=== PATIENT | male | born 1990 | race Caucasian/White ===

== ENCOUNTER 2016-08-23 18:44 | Observation (INO) | payer OTHER ==
[~2016-08-23] VITALS: Ht 172.7 cm; Wt 63.7 kg
[2016-08-23] VITALS (218 sets, daily range): BP systolic 105–126; BP diastolic 67–874; PULSE 65–79; TEMP 98.2; O2SAT 97–100
[~2016-08-23 18:44] MED LIST: COLACE 100100 MG/CAP PO; EC NAPROSYN500 MG PO; FLOMAX 0.40.4 MG/CAP PO; LEVAQUIN 5500 MG/TA1 PO; MOTRIN 800800 MG/TAB PO; NAPROSYN500 MG PO; NORCO 325 MG-51 TAB PO; PERCOCET 325 MG1 TA2 PO; PYRIDIUM 100MG100 MG PO; PYRIDIUM200 M1 PO; TYLENOL 325MG325 MG PO; ZOFRAN8 MG PO
[2016-08-23] MEDS ORDERED: ZOLOFT 50MG50 MG PO (19:54)
[2016-08-23] MEDS ORDERED: MINIPRESS2 MG PO (19:55)
[2016-08-23] MEDS ORDERED: MELAT3MGTAB PO (19:56)
[2016-08-23] MEDS ORDERED: UROCIT-K 5540 MG/TAB PO (19:57)
[2016-08-23 21:41] LABS: TROPONIN-I < 0.012 ng/mL (0.000-0.034)
[2016-08-23 21:53] LABS: THYROXINE (T4)-TOTAL 6.4 ug/dL (5.5-11.0)
[2016-08-24] VITALS (531 sets, daily range): BP systolic 106–116; BP diastolic 62–78; PULSE 70–78; TEMP 96.8–98.1; O2SAT 94–100
[2016-08-24 05:48] LABS: HEMATOCRIT 44.8 % (42.0-52.0); HEMOGLOBIN 15.3 g/dl (13.5-18.0); MEAN CELL VOLUME 83 fl (80.0-100.0); MEAN CORPUSCULAR HEMOGLOBIN 28 pg (27.0-31.0); MEAN CORPUSCULAR HGB CONC 34 g/dl (33.0-37.0); MEAN PLATELET VOLUME 11.2 fl (7.4-10.4); PLATELET COUNT 245 K/mm3 (130-400); RED BLOOD COUNT 5.43 M/mm3 (4.20-5.60); REDCELL DISTRIBUTION WIDTH-CV 13.9 % (11.5-14.5); WHITE BLOOD COUNT 8.4 K/mm3 (4.8-10.8)
[2016-08-24 05:55] LABS: CALCIUM 9.2 mg/dL (8.4-10.2); CREATININE, serum 1.04 mg/dL (0.66-1.25); MAGNESIUM 2.1 mg/dL (1.6-2.3); PHOSPHOROUS 4.4 mg/dL (2.5-4.5); POTASSIUM 4.1 mmol/L (3.4-5.0)
[2016-08-24 20:37] LABS: T3 FREE (TRI-IODOTHYRONINE) 3.1 pg/mL (1.7-3.7)
== END 2016-08-24 16:04 | disposition home or self-care (01) ==
LOC: ICU 18:44
PROVIDERS: Internal Medicine; Psychiatry & Neurology Neurology
DX: R25.1 Tremor, unspecified (principal); F41.9 Anxiety disorder, unspecified; F43.10 Post-traumatic stress disorder, unspecified; R07.9 Chest pain, unspecified
CPT/HCPCS: 90791-AI; A9585; G0378; G0379; J1650; J2060

== ENCOUNTER 2017-08-29 15:39 | Day surgery (SDC) | payer OTHER ==
[~2017-08-29] VITALS: Ht 170.2 cm; Wt 58.1 kg
[~2017-08-29 15:39] MED LIST changes: +MELAT3MGTAB PO; +MINIPRESS2 MG PO; +UROCIT-K 5540 MG/TAB PO; +ZOLOFT 50MG50 MG PO
[2017-08-29] MEDS ORDERED: DESYREL 100MG100 MG PO (16:20)
[2017-08-29] MEDS ORDERED: MINIPRESS2 MG PO (16:21)
[2017-08-29] MEDS ORDERED: LEXAPRO20 MG PO (16:21)
[2017-08-29 16:28] VITALS: BP 131/74; PULSE 87; TEMP 99.1
[2017-08-29 19:33] VITALS: BP 127/77; PULSE 56
[2017-08-29 19:48] VITALS: BP 134/80; PULSE 73
[2017-08-29 19:51] VITALS: BP 127/77; PULSE 62; TEMP 98
[2017-08-29 20:03] VITALS: BP 124/79; PULSE 56
== END 2017-08-29 20:15 | disposition home or self-care (01) ==
LOC: SDCO 15:39 → JCC 19:47 → SDCO 20:15
DX: R31.29 Other microscopic hematuria (principal); R10.9 Unspecified abdominal pain; F41.9 Anxiety disorder, unspecified; Z87.442 Personal history of urinary calculi; Z84.1 Family history of disorders of kidney and ureter
CPT/HCPCS: OP; C1769; C2617; J0690; J1100; J2405; J2704; J3010; J7120; Q9967